=== PATIENT | female | born 1990 | race African-American/Black ===

== ENCOUNTER 2024-07-10 15:23 | Emergency (ER) | payer MEDICAID ==
[~2024-07-10] VITALS: Ht 157.5 cm; Wt 99.8 kg
[~2024-07-10 15:23] MED LIST: CLON0.5T54 PO; DIPH25CA83 PO; LITHBID PO; PHEN100C4 PO; QUET300T2 PO; RISP-28 PO; TOPI25TA48 PO; TOPUD PO; [UNRECOGNIZED DRUG - CODE] PO
[2024-07-10 15:26] VITALS: BP 135/95; PULSE 97; TEMP 98.6; O2SAT 100; O2SAT 96
[2024-07-10 16:18] VITALS: RESP 18
[2024-07-10] MEDS ORDERED: CEPH500T MT (16:27)
[2024-07-10] MEDS ORDERED: SULF1TAB48 MT (16:27)
== END 2024-07-10 19:50 | disposition home or self-care (01) ==
LOC: ER 15:23
DX: L60.0 Ingrowing nail (principal); F12.90 Cannabis use, unspecified, uncomplicated; F41.9 Anxiety disorder, unspecified; F32.A Depression, unspecified; Z88.8 Allergy status to other drugs, medicaments and biological substances; Z88.6 Allergy status to analgesic agent; Z88.5 Allergy status to narcotic agent; Z79.899 Other long term (current) drug therapy
CPT/HCPCS: 99283

== ENCOUNTER 2024-09-25 11:01 | Emergency (ER) | payer MEDICAID ==
[~2024-09-25] VITALS: Ht 157.5 cm; Wt 91.0 kg
[~2024-09-25 11:01] MED LIST changes: +CEPH500T MT; +SULF1TAB48 MT
[2024-09-25 11:17] VITALS: O2SAT 99
[2024-09-25] MEDS ORDERED: MUPI15CR11 TP (12:54)
[2024-09-25] MEDS ORDERED: CEPH500T MT (12:54)
[2024-09-25] MEDS ORDERED: CIPR1DRO2 RIGHT EAR (12:54)
[2024-09-25 13:10] VITALS: BP 138/74; PULSE 71; RESP 18; TEMP 36.94740; O2SAT 99
== END 2024-09-25 13:32 | disposition home or self-care (01) ==
LOC: ER 11:01
DX: H60.11 Cellulitis of right external ear (principal); F12.10 Cannabis abuse, uncomplicated; Z88.5 Allergy status to narcotic agent; Z88.8 Allergy status to other drugs, medicaments and biological substances
CPT/HCPCS: 99283